=== PATIENT | female | born 1950 | race Caucasian/White ===

== ENCOUNTER → 2020-07-21 | Outpatient (CLI) | payer OTHER | LOC: MC.RAD 12:31 | DX: R92.1 Mammographic calcification found on diagnostic imaging of breast (principal) ==

== ENCOUNTER 2021-04-13 06:42 | Day surgery (SDC) | payer OTHER, MEDICARE ==
[~2021-04-13] VITALS: Ht 154.9 cm; Wt 67.2 kg
[2021-04-13] VITALS (8 sets, daily range): BP systolic 124–139; BP diastolic 57–82; PULSE 74–86; TEMP 98.3–98.4
[2021-04-13] MEDS ORDERED: LIPITOR 40MG TA40 MG PO (07:29)
[2021-04-13] MEDS ORDERED: GLUCOPHAGE500 MG/TAB PO (07:29)
[2021-04-13] MEDS ORDERED: LEVOXYL0.05 MG PO (07:30)
[2021-04-13] MEDS ORDERED: SEREVENT IH (07:30)
[2021-04-13] MEDS ORDERED: BENICAR5 MG PO (07:30)
[2021-04-13] MEDS ORDERED: TRIMPEX100 MG PO (07:30)
[2021-04-13] MEDS ORDERED: VENTOLIN0.09 MG IH (07:31)
[2021-04-13] MEDS ORDERED: CINNAMON500 MG PO (07:31)
[2021-04-13] MEDS ORDERED: XALATAN EYE DROPS OD (07:31)
[2021-04-13] MEDS ORDERED: CALCIUM 600MG+D1 TAB PO (07:31)
[2021-04-13] MEDS ORDERED: EXCEDRIN1 TAB PO (07:32)
[2021-04-13] MEDS ORDERED: CRANBERRY500 M3 PO (07:32)
[2021-04-13] MEDS ORDERED: CENTRUM SILVER1 CTB PO (07:32)
[2021-04-13] MEDS ORDERED: MOTRIN 200200 MG/TAB PO (07:33)
[2021-04-13] MEDS ORDERED: TYLENOL 500MG500 MG PO (07:33)
--- NOTE | 2021-04-13 16:13 | NUR ---
1544 PATIENT SITS UP ON EDGE OF BED. WALKS TO HALLWAY AND BACK. TOLERATES WELL. DENIES HAVING PAIN
[2021-04-14 00:15] VITALS: BP 117/47; PULSE 66; TEMP 98
[2021-04-14 05:00] VITALS: BP 133/53; PULSE 62; TEMP 97.6
--- NOTE | 2021-04-14 07:09 | NUR ---
FASTING BS 112
[2021-04-14 07:35] VITALS: BP 130/64; PULSE 70; TEMP 98
--- NOTE | 2021-04-14 07:40 | NUR ---
0740- VS and Assessment completed. Pt denies pain. Roberto removed without difficulty, clear, yellow urine noted. Roles at bedside for rounds. Vaginal packing removed by this RN, Pt tolerated well. Dr Roles discusses POC and discharge plan, questions answered. SCDs off per Pt request, Pt up and ambulating around room. Tolerating well.
[2021-04-14] MEDS ORDERED: IBU600 MG PO (07:47)
--- NOTE | 2021-04-14 13:15 | NUR ---
1315- Pt escoted off unit via wheelchair by this RN. Pt in stable condition.
== END 2021-04-14 13:15 | disposition home or self-care (01) ==
LOC: SDCO 06:42 → OB 12:06 → SDCO 12:07 → OB 12:08 → SDCO 12:08 → OB 04-14 13:15
DX: N81.2 Incomplete uterovaginal prolapse (principal); I10 Essential (primary) hypertension; J45.20 Mild intermittent asthma, uncomplicated; E11.22 Type 2 diabetes mellitus with diabetic chronic kidney disease; I12.9 Hypertensive chronic kidney disease with stage 1 through stage 4 chronic kidney disease, or unspecified chronic kidney disease; N18.31 Chronic kidney disease, stage 3a; G43.909 Migraine, unspecified, not intractable, without status migrainosus; E03.9 Hypothyroidism, unspecified; E78.2 Mixed hyperlipidemia; N39.0 Urinary tract infection, site not specified; K21.9 Gastro-esophageal reflux disease without esophagitis; H40.1110 Primary open-angle glaucoma, right eye, stage unspecified; Z79.899 Other long term (current) drug therapy; Z79.84 Long term (current) use of oral hypoglycemic drugs
CPT/HCPCS: A4314; C2631; J0690; J1885; J2405; J2704; J2710; J3010; J7120

== ENCOUNTER → 2021-11-06 | Outpatient (CLI) | payer OTHER, MEDICARE ==
[~2021-11-06] MED LIST: BENICAR5 MG PO; CALCIUM 600MG+D1 TAB PO; CENTRUM SILVER1 CTB PO; CINNAMON500 MG PO; CRANBERRY500 M3 PO; EXCEDRIN1 TAB PO; GLUCOPHAGE500 MG/TAB PO; IBU600 MG PO; LEVOXYL0.05 MG PO; LIPITOR 40MG TA40 MG PO; MOTRIN 200200 MG/TAB PO; SEREVENT IH; TRIMPEX100 MG PO; TYLENOL 500MG500 MG PO; VENTOLIN0.09 MG IH; XALATAN EYE DROPS OD
== END ==
LOC: MC.RAD 07:56
DX: Z12.31 Encounter for screening mammogram for malignant neoplasm of breast (principal)

== ENCOUNTER 2023-10-27 07:33 | Day surgery (SDC) | payer MEDICARE, OTHER ==
[~2023-10-27] VITALS: Ht 154.9 cm; Wt 66.4 kg
[~2023-10-27 07:33] MED LIST changes: +LR 1,000 ML IV SCH; +Ondansetron 4 MG/2 ML VIAL IV PRN
[2023-10-27] MEDS ORDERED: CEPHALEXIN500 M1 PO (07:50)
[2023-10-27] MEDS ORDERED: SINGULAIR 110 MG/TAB PO (07:55)
[2023-10-27 08:29] VITALS: BP 150/73; PULSE 91; TEMP 97.4
--- NOTE | 2023-10-27 08:35 | NUR ---
0740 Pt ambulatory to bay 3 with steady gait, breathing even and unlabored. Pt is alert and oriented. Consents reviewed and signed by pt. IV established. LR infusing via gravity at KVO. Call light in reach. Warm blanket provided.
[2023-10-27] MEDS ORDERED: Lidocaine PF 2% (20 MG/ML) 5 ML VIAL ONE (09:11)
[2023-10-27 09:55] VITALS: BP 141/77; PULSE 81; TEMP 97
[2023-10-27 10:10] VITALS: BP 142/82; PULSE 65
--- NOTE | 2023-10-27 10:32 | NUR ---
0970-PT ARRIVED VIA CART TO [facility] , PATIENT ALERT ON ARRIVAL. AMBULATED WITH ASSISTANCE TO RECLINER, WARM BLANKET PROVIDED. VITAL SIGNS TAKEN, VSS. PT DENIES PAIN OR NAUSEA. REPORT OBTAINED FROM DEREK ALVARENGA. UPDATE GIVEN TO PATIENT. 1010-VSS. PT TOLERATING PO INTAKE WITHOUT COMPLAINTS, DENIES PAIN OR NAUSEA. 1015-DISCHARGE INSTRUCTIONS REVIEWED WITH PT, QUESTIONS INVITED. PATIENT CHANGED INTO CLOTHING INDEPENDENTLY. 1020-IV CATHETER DISCONTINUED, TIP INTACT. PRESSURE HELD AND BANDAGE APPLIED. 1030-PATIENT DISCHARGED HOME TO [facility] VIA WHEELCHAIR, ACCOMPANIED BY SON. ALL BELONGINGS AND D/C PAPERWORK SENT WITH PT.
== END 2023-10-27 10:30 | disposition home or self-care (01) ==
LOC: SDCO 07:33
DX: Z12.11 Encounter for screening for malignant neoplasm of colon (principal)
CPT/HCPCS: J2704; J7120

== ENCOUNTER → 2023-11-09 | Outpatient (CLI) | payer MEDICARE, OTHER ==
[~2023-11-09] MED LIST changes: +CEPHALEXIN500 M1 PO; -LR 1,000 ML IV SCH; -Ondansetron 4 MG/2 ML VIAL IV PRN; +SINGULAIR 110 MG/TAB PO
== END ==
LOC: MC.RAD 07:45
DX: Z12.31 Encounter for screening mammogram for malignant neoplasm of breast (principal)